=== PATIENT | male | born 1980 | race Caucasian/White ===

== ENCOUNTER 2016-07-13 21:48 | Emergency (ER) | payer OTHER ==
[~2016-07-13] VITALS: Ht 177.8 cm; Wt 63.5 kg
--- NOTE | ~2016-07-13 | EKG ---
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 07/14/16 1428 [id number] Yusuf Newsome MD, FACC /EPI
[2016-07-13] MEDS ORDERED: PROPRANOLOL 20M20 M1 PO (22:00)
[2016-07-13] MEDS ORDERED: ONDANSETRON HCL4 M2 PO (22:01)
[2016-07-13] MEDS ORDERED: BUPRENORPHINE HC8 MG SL (22:02)
[2016-07-13] MEDS ORDERED: DIAZEPAM 10 MG10 M1 PO ×2 (22:04)
[2016-07-13] MEDS ORDERED: DIAZEPAM 10 MG10 M2 PO (22:05)
[2016-07-13 22:50] LABS: BASOPHILS 0.4 % (0.0-2.0); RDW 12.3 % (10.5-14.5)
[2016-07-13 22:52] LABS: AMP/METHAMP POSITIVE (Negative); BARBITURATES Negative (Negative); BENZODIAZEPINES POSITIVE (Negative); COCAINE POSITIVE (Negative); METHADONE Negative (Negative); OPIATES Negative (Negative); PCP Negative (Negative); THC POSITIVE (Negative)
[2016-07-13 22:53] LABS: ABSOLUTE NEUTROPHILS 7.7 thou/uL (1.4-8.2); HEMATOCRIT 41.7 % (42.0-52.0); HEMOGLOBIN 14.4 gm/dL (14.0-18.0); LYMPHOCYTES 19.3 % (24.0-44.0); MCH 30.1 pg (26.0-34.0); MCHC 34.5 % (28.0-37.0); MCV 87.3 fL (80.0-100.0); MONOCYTES 5.3 % (1.0-8.0); PLATELET COUNT 198 thou/uL (150-400); RBC 4.78 mil/uL (4.50-6.00); WBC 10.9 thou/uL (4.0-11.0)
[2016-07-13 22:58] LABS: MANUAL DIFF NO
[2016-07-13 23:54] LABS: ANION GAP 15 mmol/L (7-16); BUN 11 mg/dL (7-18); CALCIUM 9.2 mg/dL (8.5-10.1); CHLORIDE 108 mmol/L (98-107); CO2 22 mmol/L (21-32); CREATININE 0.8 mg/dL (0.6-1.3); GLUCOSE 86 mg/dL (70-99); POTASSIUM 4.1 mmol/L (3.5-5.1); SODIUM 145 mmol/L (136-145)
[2016-07-14 00:02] LABS: ALBUMIN 4.1 g/dL (3.4-5.0); ALKALINE PHOSPHATASE 54 U/L (46-116); DIRECT BILIRUBIN 0.2 mg/dL (<0.1-0.3); SALICYLATE < 2.8 mg/dL (2.8-20.0); SGOT 11 U/L (15-37); SGPT 17 U/L (30-65); TOTAL BILIRUBIN 1.2 mg/dL (<0.1-1.0); TOTAL PROTEIN 7.4 g/dL (6.4-8.2)
[2016-07-14 00:30] VITALS: BP 120/84
== END 2016-07-14 00:50 | disposition home or self-care (01) ==
LOC: ER 21:48
PROVIDERS: Emergency Medicine
DX: F19.10 Other psychoactive substance abuse, uncomplicated (principal); R41.82 Altered mental status, unspecified